=== PATIENT | female | born 1970 | race Caucasian/White ===

== ENCOUNTER 2021-10-25 15:31 | Emergency (ER) | payer OTHER, SELFPAY ==
[2021-10-25 15:38] VITALS: BP 128/74; PULSE 118; RESP 20; TEMP 36.4; O2SAT 98; BMI 23.5
--- NOTE | 2021-10-25 15:41 | DI.RAD.S_ITS ---
PROCEDURE: XR CHEST 2V INDICATIONS: +COVID, increased shortness of breath TECHNIQUE: 2 views of the chest were acquired. COMPARISON: None. FINDINGS: Surgical changes and devices: None. Lungs and pleura: Lungs are clear. No pleural effusions or pneumothorax. Mediastinum: Mediastinal contours are normal. Heart size is normal. Bones and chest wall: No suspicious bony abnormalities. Soft tissues appear unremarkable. IMPRESSION: Clear lungs, without focal infiltrates. In this patient with this given history, please consider short-term follow-up. Dictated by: Charlie Black M.D. on 10/25/2021 at 16:31 Approved by: Charlie Black M.D. on 10/25/2021 at 16:31
[2021-10-25 16:56] VITALS: PULSE 84; O2SAT 97
[2021-10-25 17:00] VITALS: PULSE 69; O2SAT 97
[2021-10-25 17:30] VITALS: PULSE 73; O2SAT 96
--- NOTE | 2021-10-25 17:43 | ED_ITS ---
HPI - SOB/Dyspnea General Chief Complaint: Shortness of Breath/Dyspnea Stated Complaint: covid+/sob x4 days Time Seen by Provider: 10/25/21 17:07 Mode of arrival: Family Vehicle History of Present Illness HPI Narrative: Patient is a healthy 51-year-old who presents with known COVID diagnosis increasing cough and shortness of breath. 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 She has noticed that she has a dry nonproductive cough. She was having some chest tightness. She is feeling a little bit better now. She is taking Paxlovid. She says previously she has had some reactive airway disease she was given Flovent which seemed to help her. She currently is not hypoxic she was mildly tachycardic but quite upset initially her heart rate has improved. History of a patent ASD with dilated root taking aspirin daily Related Data Previous Rx's Medication Instructions Recorded fluticasone propionate 110 1 puff inhalation BID #12 grams 10/25/21 mcg/actuation HFA aerosol inhaler (Flovent HFA) Allergies Allergy/AdvReac Type Severity Reaction Status Date / Time Penicillins Allergy Hives Verified 10/25/21 15:41 Review of Systems Review of Systems Narrative: GENERAL: See HPI HEENT: Denies sinus pain, ear pain, sore throat, difficulty swallowing, neck pain RESPIRATORY: See HPI CARDIOVASCULAR: Denies chest pain, palpitations, orthopnea, edema GASTROINTESTINAL: Denies nausea, vomiting, abdominal pain, diarrhea, constipation, melena. : Denies dysuria, frequency, incontinence, hematuria, urinary retention, flank pain. MUSCULOSKELETAL: Denies weakness, joint pain, or bony pain SKIN: No rash, no erythema, no pruritus NEUROLOGIC: Denies weakness, dizziness, headache, numbness, change in speech, confusion PSYCHIATRIC: No concerning psychosocial issues. 12 point review of systems is negative except for those stated above and HPI Patient History Social History Smoking Status: Former smoker Smoking Status: Former smoker Substance Use Type: does not use Exam Initial Vital Signs Initial Vital Signs: Vital Signs Temperature 97.5 F L 10/25/21 15:38 Pulse Rate 118 H 10/25/21 15:38 Respiratory Rate 20 10/25/21 15:38 Blood Pressure 128/74 10/25/21 15:38 Pulse Oximetry 98 10/25/21 15:38 Oxygen Delivery Method 10/25/21 15:38 GENERAL: Alert pleasant 51-year-old female and in no acute distress. HEENT: Head atraumatic,EOMI, pupils reactive, face symmetric, moist mucous membranes CARDIOVASCULAR: Regular rate and rhythm without murmurs, rubs or gallops. RESPIRATORY: Breath sounds equal bilaterally, no wheezes rales or rhonchi. ABDOMEN: Soft, nontender. Normoactive bowel sounds all 4 quadrants. No guarding or rebound. EXTREMITIES: Normal range of motion, no clubbing or edema. Neurovascularly intact NEUROLOGICAL: Alert and oriented x4. SKIN: Warm, dry, no laceration, no petechiae, no rashes or lesions. Course Orders Ordered: ED Orders 10/25/21 15:41 XR chest 2V Stat Vital Signs Vital signs: Vital Signs - 8 hr 10/25/21 15:38 10/25/21 16:56 10/25/21 17:00 Temperature 97.5 F L Pulse Rate 118 H 84 69 Respiratory Rate 20 Blood Pressure 128/74 Pulse Oximetry 98 97 97 Oxygen Delivery Method Room Air MDM - SOB/Dyspnea Imaging Data Chest x-ray: Radiologist's Impression: Signed Patient: Amparo Lundberg MR#: [id number] : 1970 Acct:[id number] Age/Sex: 51 / F Date of Service: 10/25/21 Loc: ED Accession Number: [id number] ?? Procedure: XR chest 2V Ordering Provider: Jodi Xie D.O. PROCEDURE:? XR CHEST 2V ? INDICATIONS:? +COVID, increased shortness of breath ? TECHNIQUE:? 2 views of the chest were acquired.? ? COMPARISON:? None. ? FINDINGS:? ? Surgical changes and devices:? None.? ? Lungs and pleura:? Lungs are clear.? No pleural effusions or pneumothorax.? ? Mediastinum:? Mediastinal contours are normal.? Heart size is normal.? ? Bones and chest wall:? No suspicious bony abnormalities.? Soft tissues appear unremarkable.? IMPRESSION:? Clear lungs, without focal infiltrates. ? In this patient with this given history, please consider short-term follow-up. ? ? Dictated by: Sera ChavisD. on 10/25/2021 at 16:31 ? ? Approved by: Charlie Black M.D. on 10/25/2021 at 16:31 ? [facility] Narrative Medical decision making narrative: Patient overall appears well. She has no respiratory distress she does have a slight dry nonproductive cough mildly reactive with deep breath. X-ray is lopez r. She has no COVID. At this time no further workup indicated. She is requesting inhaler for Flovent. She actually works in [place] and is commuting. Discharge Plan Departure Patient Disposition: Home Clinical Impression: COVID-19 Instructions: DI for COVID-19 (Suspected or Confirmed ) Activity Restrictions/Additional Instructions: *You have been diagnosed with COVID-19 *What to do: At this time I do recommend he get a pulse oximeter to monitor your oxygen randomly at home. Rest and hydrate. *Continue to take medications as directed Flovent *Follow up with your primary care provider in 2-3 days or call [phone] *Return to ER if you should have oxygen less than 91%, increasing shortness of breath weakness or any new, worsening or concerning symptoms Prescriptions: New fluticasone propionate [Flovent HFA] 110 mcg/actuation HFA aerosol inhaler 1 puff inhalation BID Qty: 12 0RF
== END 2021-10-25 18:05 | disposition home or self-care (01) ==
PROVIDERS: Emergency Provider Emergency Medicine
DX: U07.1 COVID-19 (principal)
CPT/HCPCS: 71046; 99281; 99283

== ENCOUNTER → 2024-10-01 08:19 | Outpatient (CLI) | payer OTHER, SELFPAY ==
[2024-10-01 09:25] LABS: Add Manual Diff / Slide Review NO; Hematocrit 38.5 % (36-46); Hemoglobin 13.4 g/dL (12.0-16.0); Lymphocytes Absolute Auto 2200 /uL (1100-4500); Mean Corpuscular HGB Conc 34.9 % (30-36); Mean Corpuscular Hemoglobin 30.4 PG (26-34); Mean Corpuscular Volume 87.0 fL (80-100); Platelet Count 243 X10^3/uL (150-400)
[2024-10-01 09:47] LABS: Alanine Aminotransferase 20 IU/L (<35); Albumin 4.5 g/dL (3.5-5.0); Albumin Globulin Ratio 1.7 (1.0-2.8); Alkaline Phosphatase 45 U/L (38-126); Blood Urea Nitrogen 12 mg/dL (7-17); Calcium 9.6 mg/dL (8.4-10.2); Carbon Dioxide 29 mmol/L (22-32); Chloride 105 mmol/L (98-107); Cholesterol 255 mg/dL (140-199); Estimated Glomerular Filt Rate > 60 mL/min (>60); Globulin 2.6 g/dL (1.7-4.1); Glucose 82 mg/dL (70-99); HDL Cholesterol 60 mg/dL (40-60); HEMOLYSIS < 15 (0-50); Potassium 4.1 mmol/L (3.4-5.1); Sodium 140 mmol/L (137-145); Total Protein 7.1 g/dL (6.3-8.2); Triglycerides 162 mg/dL (35-150)
[2024-10-01 10:18] LABS: TSH w/ Reflex to FT4 1.64 uIU/mL (0.47-4.68)
[2024-10-01 10:27] LABS: Vitamin D 25 Hydroxy (D3) 47.3 ng/mL (30.0-100.0)
[2024-10-01 14:48] LABS: Follicle Stimulating Hormone 45.7 mIU/mL
== END ==
PROVIDERS: PCP Nurse Practitioner Family; Referring Provider Nurse Practitioner Family; Visit Provider Nurse Practitioner Family
DX: R63.5 Abnormal weight gain (principal); R53.83 Other fatigue; I10 Essential (primary) hypertension
CPT/HCPCS: 36415; 80053; 80061; 82306; 82672; 83001; 83002; 84443; 85025

== ENCOUNTER 2025-02-17 07:42 | Day surgery (SDC) | payer OTHER, SELFPAY ==
[2025-02-17 07:57] VITALS: BP 116/68; PULSE 65; RESP 16; TEMP 36.3; O2SAT 100
[2025-02-17] MEDS: LACTATED RINGERS 1,000 ML 42 ML IV (08:07)
--- NOTE | 2025-02-17 08:33 | PM.OP.COLON ---
Operative Date/Time/Diagnoses Date of procedure: 02/17/25 Time of procedure: 09:09 Pre-op diagnosis: History of adenomatous colon polyps and diverticulitis Post-op diagnosis: same Procedure & Clinicians Study performed: Colonoscopy Same procedure(s) as scheduled: Yes Indications: History of diverticulitis and history of adenomatous colon polyps need for follow-up colonoscopy Surgeon: Celestine Tejeda Anesthesia Type: Other Procedure Notes Procedure in detail: After informed consent was obtained the patient was placed in left lateral decubitus position. The video colonoscope was placed rectum slowly advanced cecum. Preparation was good. On slow withdrawal mucosa was carefully examined. The scope was removed. The patient tolerated procedure well Blood loss none Complications none Sedation mac Findings 1. Normal colonoscopy to cecum 2. Very few diverticuli present Patient should have follow-up colonoscopy in 5 years Estimated Blood Loss: 0 Complications: none
--- NOTE | 2025-02-17 08:55 | PM.HP.IH.1 ---
History of Present Illness History of Present Illness Date Patient Seen: 02/17/25 Chief complaint: SDC Narrative: History of adenomatous colon polyps and a history of diverticulitis. [facility] Medical History (Updated 09/23/24 @ 07:56 by Mima Nam [facility]) Yousif's neuroma Hormone replacement therapy (HRT) Dermatographia GERD (gastroesophageal reflux disease) Patent foramen ovale with atrial septal aneurysm Social History Smoking Status: Never smoker alcohol intake: never Meds Home Medications and Allergies Home Medications ?Medication ?Instructions ?Recorded ?Confirmed ?Type aspirin 81 mg capsule 81 mg PO DAILY heart defect 09/20/24 12/09/24 History calcium 325 mg-vit D3 12.5 2 tab PO DAILY osteoporosis 09/20/24 12/09/24 History mcg-zinc 2.75 rg-owkrpt-pezxactjt prevention tablet (Citracal-D3 Maximum Plus) cetirizine 10 mg tablet 20 mg PO DAILY Allergies and 09/20/24 12/09/24 History dermatographia estradiol 1 mg tablet 1 mg PO DAILY #90 tabs 09/20/24 12/09/24 Rx famotidine 20 mg tablet 20 mg PO DAILY heart burn 09/20/24 12/09/24 History glucosamine 750 df-tovpgkchsra-mpc 2 tab PO DAILY joint pain & 09/20/24 12/09/24 History no1 644 mg-C 30 mg-umang 1 mg mobility tablet (Osteo Bi-Flex Triple Strength) hydrocortisone 2.5 % topical cream 1 applic topical DAILY #28.35 grams 09/20/24 12/09/24 Rx nitrofurantoin 1 cap PO DAILY 09/20/24 12/09/24 History monohydrate/macrocrystals 100 mg capsule nitrofurantoin 100 mg PO .PRN urethritis #30 caps 09/20/24 12/09/24 Rx monohydrate/macrocrystals 100 mg capsule (Macrobid) omega 3-zys-jfi-fish oil 1,200 mg cap PO heart, brain, and joint 09/20/24 12/09/24 History (144 mg-216 mg) capsule (Fish Oil) health sodium,potassium,mag sulfates 17.5 See Rx Instructions PO .COMPLEX 08/08/25 09/15/25 Rx gram-3.13 gram-1.6 gram oral soln #354 mL (Suprep Bowel Prep Kit) nirmatrelvir 300 mg (150 mg See Rx Instructions PO .COMPLEX 11/29/24 12/09/24 Rx x2)-ritonavir 100 mg tablet,dose #30 ea pack (Paxlovid) Allergies Allergy/AdvReac Type Severity Reaction Status Date / Time Penicillins Allergy Hives Verified 02/17/25 07:51 Exam Vital Signs (past 8 hours): - 02/17/25 07:57 Temperature 97.3 F L Pulse Rate 65 Respiratory Rate 16 Blood Pressure 116/68 Pulse Oximetry 100 Oxygen Delivery Method Room Air Oxygen Delivery Method Room Air Narrative Exam Narrative: Oropharynx free of lesions Chest clear to auscultation percussion Cardiac exam reveals no S3 or murmur Assessment & Plan Assessment & Plan narrative: History of adenomatous colon polyps need for follow-up colonoscopy. Risks, benefits, alternatives have been explained. Time-Based Coding :: [TOTAL MINUTES] spent with patient and on the chart (including review of chart, obtaining history, exam, reviewing outside data, placing orders, documenting exam and treatment plan, and counseling patient) on [DATE]. [employer] Document charge(s): No
[2025-02-17 09:14] VITALS: BP 102/52; PULSE 61; RESP 14; TEMP 36.2; O2SAT 97
[2025-02-17 09:28] VITALS: BP 107/67; PULSE 60; RESP 14; TEMP 36.2; O2SAT 96
== END 2025-02-17 09:30 | disposition home or self-care (01) ==
PROVIDERS: PCP Nurse Practitioner Family; Referring Provider Nurse Practitioner Family; Visit Provider Internal Medicine Gastroenterology
PROC: 0DJD8ZZ Inspection of Lower Intestinal Tract, Via Natural or Artificial Opening Endoscopic (ICD-10-PCS; CPT 45378; principal; 2025-02-17 09:00)
DX: Z12.11 Encounter for screening for malignant neoplasm of colon (principal); Z86.0101 Personal history of adenomatous and serrated colon polyps; K21.9 Gastro-esophageal reflux disease without esophagitis
CPT/HCPCS: G0105; J2704; J7120